=== PATIENT | female | born 1990 | race Two or more races ===

== ENCOUNTER 2018-06-09 14:45 | Emergency (ER) | payer OTHER ==
[~2018-06-09] VITALS: Ht 154.9 cm; Wt 67.6 kg
[2018-06-09] MEDS ORDERED: PROVIDA DHA CA1 EACH (15:07)
== END 2018-06-09 20:58 | disposition home or self-care (01) ==
LOC: ER 14:45
DX: B34.9 Viral infection, unspecified (principal)

== ENCOUNTER → 2018-06-10 | Emergency (ER) | payer OTHER ==
[~2018-06-10] MED LIST: PROVIDA DHA CA1 EACH
== END | disposition left against medical advice (07) ==
LOC: ER 15:31
DX: Z53.20 Procedure and treatment not carried out because of patient's decision for unspecified reasons (principal)

== ENCOUNTER 2018-08-11 13:01 | Emergency (ER) | payer OTHER ==
[~2018-08-11] VITALS: Ht 154.9 cm; Wt 68.0 kg
== END 2018-08-11 18:19 | disposition home or self-care (01) ==
LOC: ER 13:01
DX: R53.81 Other malaise (principal); R42 Dizziness and giddiness

== ENCOUNTER 2018-08-30 14:17 | Outpatient (CLI) | payer OTHER ==
[2018-08-30] MEDS ORDERED: KEFLEX500 MG PO (21:22)
== END 2018-08-30 22:30 | disposition home or self-care (01) ==
LOC: OBS/DEL 14:17
DX: O23.42 Unspecified infection of urinary tract in pregnancy, second trimester (principal); Z34.82 Encounter for supervision of other normal pregnancy, second trimester

== ENCOUNTER 2018-12-11 14:42 | Inpatient (IN) | payer OTHER ==
[~2018-12-11] VITALS: Ht 154.9 cm; Wt 176.0 kg
[~2018-12-11 14:42] MED LIST changes: +KEFLEX500 MG PO
[2018-12-11] MEDS ORDERED: LEVOTHYROXINE25 MCG PO (17:13)
[2018-12-14] MEDS ORDERED: ACETAMINOPHEN500 M1 PO (13:19)
[2018-12-14] MEDS ORDERED: IBUPROFEN400 MG PO (13:20)
== END 2018-12-14 14:08 | DRG 807 ==
LOC: LDR 14:42 → OB/GYN 14:42
PROVIDERS: ADMIT Obstetrics & Gynecology
PROC: 10E0XZZ Delivery of Products of Conception, External Approach (ICD-10-PCS; principal; 2018-12-11)
PROC: 0KQM0ZZ Repair Perineum Muscle, Open Approach (ICD-10-PCS; 2018-12-11)
PROC: 4A0HXFZ Measurement of Products of Conception, Cardiac Rhythm, External Approach (ICD-10-PCS; 2018-12-11)
DX: O70.1 Second degree perineal laceration during delivery (principal); Z37.0 Single live birth; O12.03 Gestational edema, third trimester; Z3A.39 39 weeks gestation of pregnancy

== ENCOUNTER 2024-11-15 18:54 | Emergency (ER) | payer OTHER ==
[~2024-11-15] VITALS: Ht 154.9 cm; Wt 83.0 kg
[~2024-11-15 18:54] MED LIST changes: +ACETAMINOPHEN500 M1 PO; +IBUPROFEN400 MG PO; +LEVOTHYROXINE25 MCG PO
[2024-11-15 19:15] VITALS: BP 107/69; O2SAT 99
[2024-11-15] MEDS ORDERED: ACETAMINOPHEN 500 MG GEL..CAP PO ONE ×2 (20:46→21:00)
[2024-11-15 22:16] LABS: BASO % 0.3 % (0.1-1.2); EOS # 0.01 (0.04-0.54); EOS % 0.1 % (0.7-7.0); HEMATOCRIT 32.1 % (34.1-44.9); HEMOGLOBIN 11.2 g/dL (11.2-15.7); LYMPH # 0.83 (1.18-3.74); LYMPH % 9.5 % (19.3-53.1); MEAN CORPUSCULAR HEMOGLOBIN 29.5 pg (25.6-32.2); MONO % 5.7 % (4.7-12.5); NEUT # 7.39 (1.56-6.13); NEUT % 84.2 % (34.0-71.1); PLATELET COUNT 232 K/uL (163-369); RED CELL DISTRIBUTION WIDTH 13.1 % (11.6-14.4)
[2024-11-15 23:56] LABS: COVID-19 AG NEGATIVE (NEGATIVE); INFLUENZA A AG NEGATIVE (NEGATIVE); INFLUENZA B AG NEGATIVE (NEGATIVE)
[2024-11-16] MEDS ORDERED: ZITHROMAX TRI-500 MG PO (00:13)
[2024-11-16] MEDS ORDERED: GILTUSS HONEY118 ML PO (00:13)
[2024-11-16] MEDS ORDERED: ACETAMINOPHEN500 M1 PO (00:13)
[2024-11-16] MEDS ORDERED: ALBUTEROL2.5 MG/3 M IH (00:16)
== END 2024-11-16 00:47 | disposition home or self-care (01) ==
LOC: ER 19:08
PROVIDERS: Preventive Medicine Public Health & General Preventive Medicine
DX: Z34.90 Encounter for supervision of normal pregnancy, unspecified, unspecified trimester (principal); Z3A.16 16 weeks gestation of pregnancy; J06.9 Acute upper respiratory infection, unspecified; R51.9 Headache, unspecified; Z20.822 Contact with and (suspected) exposure to COVID-19; Z91.018 Allergy to other foods

== ENCOUNTER 2025-01-05 11:13 | Emergency (ER) | payer OTHER ==
[~2025-01-05] VITALS: Ht 154.9 cm; Wt 82.6 kg
[~2025-01-05 11:13] MED LIST changes: +ALBUTEROL2.5 MG/3 M IH; +GILTUSS HONEY118 ML PO; +ZITHROMAX TRI-500 MG PO
[2025-01-05] MEDS ORDERED: ACETAMINOPHEN 500 MG GEL..CAP PO ONE (13:00)
[2025-01-05 13:08] LABS: BASO % 0.2 % (0.1-1.2); EOS # 0.01 (0.04-0.54); EOS % 0.1 % (0.7-7.0); LYMPH # 0.41 (1.18-3.74); LYMPH % 4.6 % (19.3-53.1); MEAN PLATELET VOLUME 9.70 fl (9.4-12.4); MONO # 0.37 (0.24-0.82); MONO % 4.2 % (4.7-12.5); NEUT # 8.00 (1.56-6.13); NEUT % 90.4 % (34.0-71.1); RED CELL DISTRIBUTION WIDTH 13.4 % (11.6-14.4)
[2025-01-05 13:56] LABS: BUN CREA RATIO 10.0 (7.0-25.0); CREATININE SERUM 0.49 mg/dL (0.55-1.02); GFR 146.35; GLUCOSE FASTING 90.0 mg/dL (65-100); OSMOLALITY SERUM 271.0 MOSM/KG (275-295)
[2025-01-05 14:05] LABS: HCG QUANTITATIVE 15399.0 mUI/mL (1-3)
[2025-01-05 14:26] LABS: URINE APPEARANCE Clear; URINE BILIRRUBIN Negative (NEGATIVE); URINE BLOOD Negative; URINE COLOR Yellow; URINE GLUCOSE Negative (NEGATIVE); URINE KETONE Negative (NEGATIVE); URINE LEUKOCYTE Negative; URINE NITRATE Negative; URINE PROTEIN Negative (NEGATIVE); URINE UROBILINOGEN 0.2 E.U./dl
[2025-01-05 14:30] LABS: URINE BACTERIA 533.8 uL (0.0-1933); URINE EPITHELIAL CELLS 24.1 uL (0.0-38.8); URINE RBC 6.8 uL (0.0-20.8); URINE WBC 4.4 uL (0.0-23.2)
[2025-01-05 14:36] LABS: COVID-19 AG POSITIVE (NEGATIVE)
[2025-01-05 14:55] LABS: URINE CAST 0.14 uL (0.0-1.40)
== END 2025-01-05 15:28 | disposition home or self-care (01) ==
LOC: ER 11:13
PROVIDERS: Emergency Medicine
DX: O98.513 Other viral diseases complicating pregnancy, third trimester (principal); U07.1 COVID-19; Z3A.24 24 weeks gestation of pregnancy

== ENCOUNTER 2025-04-22 13:00 | Inpatient (IN) | payer OTHER ==
[~2025-04-22] VITALS: Ht 154.9 cm; Wt 87.1 kg
[2025-04-25] VITALS (9 sets, daily range): BP systolic 108–131; BP diastolic 55–69; O2SAT 99
[2025-04-25] MEDS ORDERED: RINGERS SOLUTION,LACTATED 1,000 ML IV SCH (06:00)
[2025-04-25] MEDS ORDERED: AMPICILLIN SODIUM 2,000 MG VIAL IV ONE (06:00)
[2025-04-25] MEDS ORDERED: PRENATAL TABLE1 EAC1 PO (06:21)
[2025-04-25] MEDS ORDERED: OXYTOCIN 500 ML IV SCH (06:45)
[2025-04-25 06:49] LABS: URINE APPEARANCE Clear; URINE BILIRRUBIN Negative (NEGATIVE); URINE BLOOD Negative; URINE COLOR Yellow; URINE GLUCOSE Negative (NEGATIVE); URINE KETONE 15 (NEGATIVE); URINE LEUKOCYTE Negative; URINE NITRATE Negative; URINE PROTEIN Negative (NEGATIVE); URINE UROBILINOGEN 0.2 E.U./dl
[2025-04-25 06:53] LABS: URINE BACTERIA 444.0 uL (0.0-1933); URINE EPITHELIAL CELLS 28.0 uL (0.0-38.8); URINE RBC 3.2 uL (0.0-20.8); URINE WBC 2.3 uL (0.0-23.2)
[2025-04-25 06:55] LABS: BASO % 0.4 % (0.1-1.2); EOS # 0.03 (0.04-0.54); EOS % 0.3 % (0.7-7.0); LYMPH # 1.74 (1.18-3.74); LYMPH % 17.3 % (19.3-53.1); MEAN PLATELET VOLUME 10.60 fl (9.4-12.4); MONO # 0.47 (0.24-0.82); MONO % 4.7 % (4.7-12.5); NEUT # 7.75 (1.56-6.13); NEUT % 77.0 % (34.0-71.1); RED CELL DISTRIBUTION WIDTH 13.4 % (11.6-14.4)
[2025-04-25 06:57] LABS: URINE CAST 0.00 uL (0.0-1.40)
[2025-04-25 07:08] LABS: INR < 0.93
[2025-04-25 07:20] LABS: ALT/SGPT 41.0 U/L (12-78); AST/SGOT 28.0 U/L (15-37); BILIRUBIN TOTAL 0.62 mg/dL (0.3-1.2); BUN CREA RATIO 19.0 (7.0-25.0); CREATININE SERUM 0.47 mg/dL (0.55-1.02); GFR 153.56; GLOBULINA 3.7 G/DL (2.4-3.5); GLUCOSE FASTING 93.0 mg/dL (65-100); OSMOLALITY SERUM 278.0 MOSM/KG (275-295)
[2025-04-25] MEDS ORDERED: MORPHINE SULFATE 4 MG/ML CARTRIDGE IV ONE (08:45)
[2025-04-25] MEDS ORDERED: AMPICILLIN SODIUM 1,000 MG VIAL IV SCH (09:00)
[2025-04-25] MEDS ORDERED: MORPHINE SULFATE 4 MG/ML VIAL IV STA (13:42)
[2025-04-25] MEDS ORDERED: CHLORHEXIDINE GLUCONATE 120 ML BOTTLE TOP ONE ×2 (15:26→16:45)
[2025-04-25] MEDS ORDERED: OXYTOCIN 20 UNITS/1000ML RL PIGGYBAG IV ONE (15:26)
[2025-04-25] MEDS ORDERED: LIDOCAINE HCL 1% 10ML VIAL ONE (15:26)
[2025-04-25] MEDS ORDERED: ERYTHROMYCIN BASE OPHT 1GM EACH TUBE OP ONE ×2 (15:26→16:45)
[2025-04-25] MEDS ORDERED: ACETAMINOPHEN 500 MG GEL..CAP PO PRN (16:45)
[2025-04-25] MEDS ORDERED: OXYTOCIN 1,000 ML IV SCH (16:45)
[2025-04-25] MEDS ORDERED: LIDOCAINE HCL 1% 10ML VIAL IJ ONE (16:45)
[2025-04-25] MEDS ORDERED: HYDROCORTISONE 2.5% 30 GM TUBE RECTAL SCH (17:00)
[2025-04-25] MEDS ORDERED: BENZOCAINE/MENTHOL 90 ML BOTTLE TOP SCH (17:00)
[2025-04-26] VITALS: BP 92/51
[2025-04-26 01:22] LABS: BASO % 0.1 % (0.1-1.2); EOS # 0.00 (0.04-0.54); EOS % 0.0 % (0.7-7.0); LYMPH # 1.37 (1.18-3.74); LYMPH % 8.1 % (19.3-53.1); MEAN PLATELET VOLUME 10.70 fl (9.4-12.4); MONO # 0.62 (0.24-0.82); MONO % 3.7 % (4.7-12.5); NEUT # 14.71 (1.56-6.13); NEUT % 87.5 % (34.0-71.1); RED CELL DISTRIBUTION WIDTH 13.6 % (11.6-14.4)
[2025-04-26 16:44] VITALS: BP 109/62
[2025-04-27 00:44] VITALS: BP 90/55
[2025-04-27 02:26] LABS: BASO % 0.3 % (0.1-1.2); EOS # 0.04 (0.04-0.54); EOS % 0.4 % (0.7-7.0); LYMPH # 2.48 (1.18-3.74); LYMPH % 22.3 % (19.3-53.1); MEAN PLATELET VOLUME 10.30 fl (9.4-12.4); MONO # 0.50 (0.24-0.82); MONO % 4.5 % (4.7-12.5); NEUT # 8.02 (1.56-6.13); NEUT % 72.2 % (34.0-71.1); RED CELL DISTRIBUTION WIDTH 13.8 % (11.6-14.4)
[2025-04-27 09:49] VITALS: BP 119/63
== END 2025-04-27 14:28 | disposition home or self-care (01) | DRG 798 ==
LOC: OB/GYN 04-25 05:48 → LDR 04-25 05:48 → OB/GYN 04-25 16:31
PROVIDERS: ADMIT Specialist; ATTEND Specialist
PROC: 10E0XZZ Delivery of Products of Conception, External Approach (ICD-10-PCS; principal; 2025-04-25)
PROC: 0HQ9XZZ Repair Perineum Skin, External Approach (ICD-10-PCS; 2025-04-25)
PROC: 3E033VJ Introduction of Other Hormone into Peripheral Vein, Percutaneous Approach (ICD-10-PCS; 2025-04-25)
PROC: 4A1HXCZ Monitoring of Products of Conception, Cardiac Rate, External Approach (ICD-10-PCS; 2025-04-25)
PROC: 0UB70ZZ Excision of Bilateral Fallopian Tubes, Open Approach (ICD-10-PCS; 2025-04-26)
DX: O70.0 First degree perineal laceration during delivery (principal); O99.824 Streptococcus B carrier state complicating childbirth; Z37.0 Single live birth; Z30.2 Encounter for sterilization; Z3A.39 39 weeks gestation of pregnancy